=== PATIENT | female | born 1995 | race African-American/Black ===

== ENCOUNTER 2016-11-11 12:34 | Emergency (ER) | payer MEDICAID, OTHER ==
[~2016-11-11] VITALS: Ht 160 cm; Wt 59.0 kg
[~2016-11-11 12:34] MED LIST: BENADRYL50 MG ORAL
--- NOTE | 2016-11-11 13:01 | Emergency Room Report ---
History of Present Illness General Chief Complaint: Medical Clearance Source: Patient Present Illness HPI 20 YO female presents to emergency Department complaining of cough, runny nose , nasal congestion x2 weeks with subjective fevers. Patient states she's not up to date with vaccinations. Patient denies history of immunocompromise or significant medical history. She denies abdominal pain rash, nausea vomiting, hematuria, frequency. Patient reports increase of sputum and clear rhinorrhea. Denies CP, Palpitations, LOC, AMS, dizziness, Changes in Vision, Sensation, paresthesias, or a sudden severe headache. Allergies: Coded Allergies: NO KNOWN ALLERGIES (Unverified Allergy, Unknown, 05/16/15) Patient History Past Medical History: see triage record Past Surgical History: none Pertinent Family History: none Last Menstrual Period: 11/05/16 Now: No Immunizations: UTD Reviewed Nursing Documentation: PMH: Agreed, PSxH: Agreed Nursing Documentation-PMH Past Medical History: No Stated History Hx Cardiac Problems: No - Anemia Review of Systems All Other Systems: negative except mentioned in HPI Physical Exam Vital Signs Date Time Temp Pulse Resp B/P Pulse Ox O2 Delivery O2 Flow Rate FiO2 11/11/16 12:43 98.1 98 16 92/62 Room Air Sp02 EP Interpretation: reviewed, normal General Appearance: no apparent distress, alert, GCS 15, non-toxic Head: normocephalic, atraumatic Eyes: bilateral eye PERRL, bilateral eye normal inspection ENT: hearing grossly normal, normal pharynx, no angioedema, normal voice, TMs + canals normal, uvula midline, nasal congestion Neck: full range of motion, no meningismus, no bony tend, supple/symm/no masses Respiratory: chest non-tender, lungs clear, normal breath sounds, speaking full sentences Cardiovascular #1: regular rate, rhythm, no edema, normal capillary refill Gastrointestinal: normal bowel sounds, non tender, soft, no guarding, no rebound Rectal: deferred Genitourinary: normal inspection, no CVA tenderness Musculoskeletal: back normal, gait/station normal, normal range of motion, non- tender, no calf tenderness Neurologic: alert, oriented x3, responsive, motor strength/tone normal, sensory intact, speech normal Psychiatric: judgement/insight normal, memory normal, mood/affect normal, no suicidal/homicidal ideation Skin: normal color, no rash, warm/dry, well hydrated Lymphatic: no adenopathy Medical Decision Making PA Attestation Dr. du is my supervising Physician whom patient management has been discussed with. Diagnostic Impression: Primary Impression: Viral upper respiratory illness Additional Impression: Medical clearance for incarceration ER Course 20 YO female presents to emergency Department complaining of cough, runny nose , nasal congestion x2 weeks with subjective fevers. Patient states she's not up to date with vaccinations. Patient denies history of immunocompromise or significant medical history. She denies abdominal pain rash, nausea vomiting, hematuria, frequency. Patient reports increase of sputum and clear rhinorrhea Ddx considered but are not limited to URI, pneumonia, PE, strep pharyngitis, meningitis. Vital signs: Pt. is afebrile, the remaining VS are WNL H&PE are most consistent with URI- no meningeal signs, oropharynx is not involved, no evidence of bacterial infection at this time. ORDERS: none required at this time, the diagnosis is clinical ED INTERVENTIONS: None required at this time. --PT. EDUCATION: Discussed antibiotic resistance with inappropriate prescribing of antibiotics for viral illnesses. Discussed signs and symptoms to indicate viral illness versus bacterial illness. DISCHARGE: At this time pt. is stable for d/c to home. Will provide printed patient care instructions, and any necessary prescriptions. Care plan and follow up instructions have been discussed with the patient prior to discharge. Last Vital Signs Date Time Temp Pulse Resp B/P Pulse Ox O2 Delivery O2 Flow Rate FiO2 11/11/16 12:43 98.1 98 16 92/62 Room Air Disposition: HOME, SELF-CARE Condition: Stable Scripts Guaifenesin (Guaifenesin) 1,200 Mg Tab.er.12h 1200 MG PO BID, #118 TAB Prov: Adrienne Gilliland 11/11/16 Guaifenesin/Dextromethorphan (Robitussin Cough-Chest Dm Liq) 118 Ml Liquid 5 ML PO Q6HR, #118 ML Prov: Adrienne Gilliland 11/11/16 Departure Forms: [facility] Clearance Patient Instructions: Medical Screening Exam Additional Instructions: Take medications as directed. Follow up with PCP in 3-5 days Return sooner to ED if new symptoms occur, or current symptoms become worse. - Please note that this Emergency Department Report was dictated using [employer] creative services technology software, occasionally this can lead to erroneous entry secondary to interpretation by the dictation equipment. Adrienne Gilliland Nov 11, 2016 13:01
[2016-11-11] MEDS ORDERED: ROBITUSSIN COU118 M4 PO (13:03)
[2016-11-11] MEDS ORDERED: GUAIFENESIN1200 MG PO (13:03)
[2016-11-11 13:07] VITALS: BP 92/62
== END 2016-11-11 13:10 | disposition home or self-care (01) ==
LOC: EMR 13:08
DX: J06.9 Acute upper respiratory infection, unspecified (principal); B97.89 Other viral agents as the cause of diseases classified elsewhere
CPT/HCPCS: 99284